=== PATIENT | male | born 1945 | race Caucasian/White ===

== ENCOUNTER 2024-03-21 09:36 | Emergency (ER) | payer OTHER ==
[2024-03-21 10:05] LABS: BASOPHILS PERCENT AUTO 0.2 % (0.0-1.0); EOSINOPHILS PERCENT AUTO 1.6 % (1.0-3.0); HEMATOCRIT 43.1 % (40.0-54.0); LYMPHOCYTES PERCENT AUTO 11.9 % (20.5-50.1); MEAN CORPUSCULAR HEMOGLOBIN 30.4 pg (27.0-34.0); MEAN CORPUSCULAR HGB CONC 32.5 g/dL (33.0-35.0); MEAN CORPUSCULAR VOLUME 93.5 fL (80-100); MONOCYTES PERCENT AUTO 6.8 % (2-8); NEUTROPHILS PERCENT AUTO 79.5 % (42.2-75.2); PLATELET COUNT,PLT 292 10^3/uL (150-450); RED BLOOD CELL COUNT 4.61 10^6/uL (4.6-6.2); WHITE BLOOD CELL COUNT,WBC 12.1 10^3/uL (5.0-10.0)
[2024-03-21] MEDS: HYDROmorphone 0.5 MG/0.5 ML Syringe IVPUSH ONE (10:10)
[2024-03-21 10:13] LABS: PTT,PARTIAL THROMBOPLSTIN TIME 24.5 SEC (22.0-34.0)
[2024-03-21 10:19] LABS: A/G RATIO 1.1; ALANINE AMINOTRANSFERASE,ALT 38 U/L (16-63); ALBUMIN 3.9 g/dL (3.4-5.0); ALKALINE PHOSPHATASE 98 U/L (46-116); AMYLASE 74 U/L (25-115); ANION GAP 12.7 mEq/L (7-13); ASPARTATE AMNIOTRANSFERASE,AST 36 U/L (15-37); BILIRUBIN TOTAL 0.3 mg/dL (0.2-1.0); BLOOD UREA NITROGEN,BUN 24 mg/dL (7-18); BUN/CREATININE RATIO 16.4 (No establ ref range); CALCIUM 9.3 mg/dL (8.5-10.1); CARBON DIOXIDE,CO2 29 mmol/L (21-32); CHLORIDE,CL 101 mmol/L (98-107); CREATININE 1.46 mg/dL (0.70-1.30); ESTIMATED GFR 49 mL/min (>=60); ETHANOL BLOOD MEDICAL < 3 mg/dL (0); GLUCOSE RANDOM 141 mg/dL (70-99); LIPASE 39 U/L (16-77); POTASSIUM,K 4.7 mmol/L (3.5-5.1); PROTEIN TOTAL,TP 7.5 g/dL (6.4-8.2); SODIUM,NA 138 mmol/L (136-145)
[2024-03-21] MEDS: Iopamidol 612 MG/ML 100 ML Bottle IVPUSH ONE (10:26)
[2024-03-21] MEDS: Ondansetron 4 MG/2 ML SDV IV ONE (10:34)
[2024-03-21] MEDS: Sodium Chloride 0.9% 10 ML Syringe FLUSH PRN (10:35)
[2024-03-21] MEDS: Sodium Chloride 0.9% 1,000 ML IV ONE (10:36)
== END 2024-03-21 12:15 ==
LOC: DL.ED 09:36
DX: S12.690A Other displaced fracture of seventh cervical vertebra, initial encounter for closed fracture (principal); S50.12XA Contusion of left forearm, initial encounter; S80.12XA Contusion of left lower leg, initial encounter; V89.2XXA Person injured in unspecified motor-vehicle accident, traffic, initial encounter
CPT/HCPCS: 36415; 70450; 71260; 72125; 72128; 73090-LT; 73562-LT; 73590-LT; 74177; 80053; 80307; 82150; 82947; 83690; 84484; 85025; 85610; 85730; 93005; 93010; 96361; 96374; 96375; 99285; 99285-25; J1170; J2405; J3490; J7030; Q9967